=== PATIENT | male | born 1995 | race Caucasian/White ===

== ENCOUNTER 2017-04-02 09:40 | Emergency (ER) | payer OTHER ==
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
[2017-04-02 09:45] VITALS: RESP 18
[2017-04-02 10:38] VITALS: TEMP 97.3
[2017-04-02 11:55] VITALS: BP 128/78; PULSE 64; O2SAT 98
== END 2017-04-02 12:05 | disposition home or self-care (01) ==
PROC: 0HQ0XZZ Repair Scalp Skin, External Approach (ICD-10-PCS; principal; 2017-04-02)
DX: S01.01XA Laceration without foreign body of scalp, initial encounter (principal); V86.99XA Unspecified occupant of other special all-terrain or other off-road motor vehicle injured in nontraffic accident, initial encounter; Y99.8 Other external cause status; Y93.89 Activity, other specified